=== PATIENT | male | born 1975 | race Caucasian/White ===

== ENCOUNTER 2019-04-03 09:53 | Day surgery (SDC) | payer BC ==
[2019-04-02 12:19] VITALS: BMI 31.6
--- NOTE | 2019-04-03 13:01 | HP ---
Admitting History and Physical - Admission Chief Complaint: ventral hernia History of Present Illness: 43 y.o. male with a supraumbilical bulge x 5 years History Source: Patient - Smoking History Smoking history: Current every day smoker Have you smoked in the past 12 months: Yes Aproximately how many cigarettes per day: 12 - Alcohol/Substance Use Hx Alcohol Use: No Home Medications - Allergies Allergies/Adverse Reactions: Allergies Allergy/AdvReac Type Severity Reaction Status Date / Time No Known Allergies Allergy Verified 04/02/19 12:11 - Home Medications Home Medications: Ambulatory Orders Docusate Sodium [Colace -] 100 mg PO TID PRN #60 capsule 04/03/19 traMADol HCL [Ultram] 100 mg PO Q4H #20 tablet MDD 8 04/03/19 Review of Systems - Review of Systems Constitutional: reports: No Symptoms HENT: reports: No Symptoms Cardiovascular: reports: No Symptoms Respiratory: reports: No Symptoms Gastrointestinal: reports: No Symptoms Physical Examination Vital Signs: Vital Signs Temperature 98.4 F 04/03/19 10:11 Pulse Rate 91 H 04/03/19 10:11 Respiratory Rate 20 04/03/19 10:11 Blood Pressure 113/74 04/03/19 10:11 O2 Sat by Pulse Oximetry (%) 96 04/03/19 10:11 Constitutional: Yes: Well Nourished, No Distress HENT: Yes: Normocephalic Neck: Yes: Supple Respiratory: Yes: CTA Bilaterally Gastrointestinal: Yes: Normal Bowel Sounds, Soft, Hernia (non-reducible 8 cm supraumbilical bulge, non-tender) Problem List - Problems (1) Ventral hernia with obstruction and without gangrene Assessment/Plan: Robotric ventral hernia repair with mesh Code(s): K43.6 - OTHER AND UNSP VENTRAL HERNIA WITH OBSTRUCTION, W/O GANGRENE
[2019-04-03] MEDS ORDERED: ROCURONIUM BROMIDE 50 MG/5 ML SYRINGE ONE ×2 (13:03→14:02)
[2019-04-03] MEDS ORDERED: fentaNYL CITRATE 250 MCG/5 ML VIAL ONE ×2 (13:03→14:09)
[2019-04-03] MEDS ORDERED: PROPOFOL 20 ML ONE ×2 (13:04)
[2019-04-03] MEDS ORDERED: SUCCINYLCHOLINE CHLORIDE 200 MG/10 ML SYRINGE ONE (13:04)
[2019-04-03] MEDS ORDERED: MIDAZOLAM HCL 2 MG/2 ML SINGLE DOSE VIAL ONE (13:04)
[2019-04-03] MEDS ORDERED: BUPIVACAINE HCL/PF 0.5% (5 MG/ML) 30 ML VIAL IJ ONE (13:07)
[2019-04-03] MEDS ORDERED: LIDOCAINE HCL 2% 100 MG/5 ML DISP.SYRIN ONE (13:22)
[2019-04-03] MEDS ORDERED: ceFAZolin SODIUM 1 GM VIAL IVPB ONE (13:25)
[2019-04-03] MEDS ORDERED: DEXAMETHASONE SOD PHOSPHATE 4 MG/1 ML VIAL ONE (13:30)
[2019-04-03] MEDS ORDERED: ceFAZolin SODIUM 1 GM VIAL ONE ×2 (13:30)
[2019-04-03] MEDS ORDERED: BUPIVACAINE HCL/PF 0.5% (5MG/ML) 10 ML VIAL IJ ONE (13:44)
--- NOTE | 2019-04-03 15:57 | OP ---
Operative Note - Note: Operative Date: 04/03/19 Pre-Operative Diagnosis: ventral hernia Operation: robotic assisted laparoscopic ventral hernia repair with mesh Post-Operative Diagnosis: Same as Pre-op Surgeon: Lionel Freeman [employer]: Shavonne Arnold Anesthesiologist/DICTAPHONE TECHNICIAN: Bertha Mills Anesthesia: General Estimated Blood Loss (mls): 10 Fluid Volume Replaced (mls): 900 Operative Report Dictated: Yes
--- NOTE | 2019-04-03 16:18 | SURG ---
Surgery Post Acute Care Nurse Practitioner Note Post Acute Care Nurse Practitioner: Shavonne Arnold PA-C Date of Service: 04/03/19 Diagnosis: Ventral hernia Procedure: robotic assisted laparoscopic ventral hernia repair with mesh I was present for the entirety of the operative procedure. For further detail, please refer to operative report. Visit type - Case Type Case Type: Scheduled - Emergency Emergency Visit: No - New patient This patient is new to me today: Yes Date on this admission: 04/03/19
[2019-04-03] MEDS ORDERED: PROMETHAZINE HCL 25 MG/1 ML VIAL IVPUSH PRN (16:19)
[2019-04-03] MEDS ORDERED: ONDANSETRON 4 MG/2 ML VIAL IVPUSH PRN (16:19)
[2019-04-03] MEDS ORDERED: oxyCODONE HCL 5 MG TABLET PO PRN (16:19)
[2019-04-03] MEDS ORDERED: LACTATED RINGERS SOLUTION 1,000 ML IV SCH (16:30)
[2019-04-03 19:15] VITALS: BP 137/74; PULSE 86; TEMP 98
--- NOTE | 2019-04-04 07:18 | OP ---
DATE OF OPERATION: 04/03/2019 PROCEDURE: Robotic-assisted laparoscopic ventral hernia repair with mesh. PREOPERATIVE DIAGNOSIS: Ventral hernia with obstruction. POSTOPERATIVE DIAGNOSIS: Ventral hernia and umbilical hernia. SURGEON: Lionel Freeman MD OCCUPATIONAL THERAPIST HOME BASED: Shavonne Arnold RPA ANESTHESIA: General endotracheal. REASON FOR PROCEDURE: This is a 43-year-old male who presents with 5-year history of slowly growing supraumbilical bulge associated with occasional mild pain on exertion. On physical exam, patient has a 6-cm supraumbilical midline bulge, which was not reducible, so patient was initially advised smoking cessation and weight loss. Patient was then scheduled for a robotic hernia repair, and consent was obtained after discussing the risks, benefits, and alternatives of the procedure. PROCEDURE IN DETAIL: Patient was brought to the operating room and placed in supine position with both arms tucked to the side. General endotracheal anesthesia was administered. The abdomen was prepped and draped in the usual sterile fashion. Using 0.5% Marcaine, local anesthesia was administered to the proposed incision site. The peritoneal cavity was entered using the Veress needle technique via an 8- mm left subcostal incision behind the anterior axillary line. Pneumoperitoneum was established. This was followed by insertion of an 8-mm port. The 3D laparoscope was inserted, and the peritoneal cavity was carefully inspected and was noted to be free of any inadvertent injury. Incarcerated omentum was noted at the supraumbilical hernia. Two other 8-mm ports were inserted at the straight line downwards 8 cm away from each other. The needle port was then used as the camera port. The target organ was set, and the robotic arms were docked. The fenestrated bipolar forceps was inserted at the lower most port, and the EndoWrist Scott connected to monopolar cautery was inserted at the left subcostal port. The undersigned then scrubbed out and commenced the console part of the procedure. The incarcerated omentum was carefully reduced by taking down the adhesions around the neck of the hernia. After this was completed, a small umbilical hernia was also identified. The retroperitoneum, which was moderately covered with fat, was taken down to provide adequate adhesion of the mesh to the posterior abdominal wall. Afterwards, the 2 defects were closed with a continuous non-absorbable V-Lock No. 1 suture. After the primary closure, the hernia repair was reinforced with 15 x 10-cm Symbotex mesh with adhesion barrier, and this was sutured to the posterior abdominal wall with running V-Lock 2-0 absorbable sutures. After the deployment was deemed satisfactory, the peritoneal cavity was again carefully inspected, and it was noted to be free of active bleeding or any abnormal fluid collection. The instruments were removed , and the pneumoperitoneum was evacuated. The robotic arms were undocked, and the ports were removed. The wounds were closed with subcuticular Biosyn 4-0 sutures reinforced with Dermabond. Patient was successfully extubated and transferred to the post anesthesia care unit in satisfactory condition. Estimated blood loss was about 10 mL. Wound class clean. The patient received 2 g of Ancef prior to the start of the procedure. Destiney [id number] MTDD
== END 2019-04-03 18:40 | disposition home or self-care (01) ==
LOC: JASU-SURG 09:53
PROVIDERS: ATTEND Surgery
PROC: 8E0W4CZ Robotic Assisted Procedure of Trunk Region, Percutaneous Endoscopic Approach (ICD-10-PCS; 2019-04-03)
PROC: 0WUF4JZ Supplement Abdominal Wall with Synthetic Substitute, Percutaneous Endoscopic Approach (ICD-10-PCS; principal; 2019-04-03 11:45)
DX: K43.6 Other and unspecified ventral hernia with obstruction, without gangrene (principal); K42.9 Umbilical hernia without obstruction or gangrene
CPT/HCPCS: 94760

== ENCOUNTER 2021-06-12 04:36 | Day surgery (SDC) | payer OTHER ==
[2021-06-08 15:49] VITALS: BMI 31.9
[2021-06-12] MEDS ORDERED: MIDAZOLAM HCL 2 MG/2 ML SINGLE DOSE VIAL ONE ×2 (12:40)
[2021-06-12 13:38] VITALS: TEMP 98
[2021-06-12 14:02] VITALS: BP 120/70; PULSE 80
== END 2021-06-12 14:00 | disposition home or self-care (01) ==
LOC: JASU-SURG 04:36
PROVIDERS: ATTEND Urology
PROC: 0TF3XZZ Fragmentation in Right Kidney Pelvis, External Approach (ICD-10-PCS; principal; 2021-06-12 13:30)
DX: N20.0 Calculus of kidney (principal)

== ENCOUNTER 2022-06-25 04:07 | Day surgery (SDC) | payer BC ==
[2022-06-21 17:38] VITALS: BMI 31.9
[2022-06-25 09:38] VITALS: RESP 20
[2022-06-25] MEDS ORDERED: MIDAZOLAM HCL 2 MG/2 ML SINGLE DOSE VIAL ONE (11:50)
[2022-06-25] MEDS ORDERED: ONDANSETRON 4 MG/2 ML VIAL ONE (11:50)
[2022-06-25 12:29] VITALS: BP 112/71; PULSE 64; TEMP 97.7
== END 2022-06-25 13:10 | disposition home or self-care (01) ==
LOC: JASU-SURG 04:07
PROVIDERS: ATTEND Urology
PROC: 0TF4XZZ Fragmentation in Left Kidney Pelvis, External Approach (ICD-10-PCS; principal; 2022-06-25 11:30)
DX: N20.0 Calculus of kidney (principal)

== ENCOUNTER 2025-06-07 06:30 | Day surgery (SDC) | payer BC ==
[2025-06-02 11:01] VITALS: BMI 34.2
[2025-06-07] MEDS ORDERED: MIDAZOLAM HCL 2 MG/2 ML SINGLE DOSE VIAL ONE ×2 (15:49→15:54)
[2025-06-07 17:13] VITALS: RESP 20
[2025-06-07 17:15] VITALS: BP 149/87; PULSE 85; TEMP 97.8
== END 2025-06-07 16:41 | disposition home or self-care (01) ==
LOC: JASU-SURG 06:30
PROVIDERS: ATTEND Urology
PROC: 0TF3XZZ Fragmentation in Right Kidney Pelvis, External Approach (ICD-10-PCS; principal; 2025-06-07 16:00)
DX: N20.0 Calculus of kidney (principal)